=== PATIENT | female | born 2000 ===

== ENCOUNTER 2023-05-11 08:21 | Day surgery (SDC) | payer OTHER ==
[2023-05-08 10:04] LABS: HEMOGLOBIN 13.1 g/dL (12.0-15.00); MEAN CELL VOLUME 81.2 fL (80.00-100.00); MEAN CORPUSCULAR HEMOGLOBIN 27.2 pg (27.00-32.0); MEAN CORPUSCULAR HGB CONC 33.6 g/dl (32.0-36.0); PLATELET COUNT 315 K/uL (150-450); RED CELL DISTRIBUTION WIDTH 14.4 % (11.5-14.5)
[2023-05-08 10:27] LABS: INR < 0.93; PARTIAL THROMBOPLASTIN TIME 30.5 SECONDS (22.0-34.0)
[2023-05-08 10:30] LABS: PROTHROMBIN TIME 9.8 SECONDS (9.0-11.5)
[2023-05-08 10:40] LABS: ALBUMIN 3.5 gm/dL (3.4-5.0); BILIRUBIN TOTAL 0.31 mg/dL (0.3-1.2); CALCIUM 9.4 mg/dL (8.5-10.1); CREATININE SERUM 0.58 mg/dL (0.55-1.02); GFR 127.72; GLOBULINA 3.8 G/DL (2.4-3.5); POTASSIUM 4.15 mEq/L (3.5-5.1); TOTAL PROTEIN 7.3 gm/dL (6.4-8.2)
[2023-05-08 11:16] LABS: PH,URINE 6.5 (5.0-8.0); URINE APPEARANCE Clear; URINE BILIRRUBIN Negative (NEGATIVE); URINE BLOOD Trace; URINE COLOR Yellow; URINE GLUCOSE Negative (NEGATIVE); URINE LEUKOCYTE Negative; URINE NITRATE Negative; URINE PROTEIN Negative (NEGATIVE); URINE UROBILINOGEN 0.2 E.U./dl
[2023-05-08 11:20] LABS: URINE BACTERIA 307.4 uL (0.0-1933); URINE EPITHELIAL CELLS 16.9 uL (0.0-38.8); URINE RBC 7.6 uL (0.0-20.8); URINE WBC 4.4 uL (0.0-23.2)
[2023-05-11] MEDS ORDERED: CEFAZOLIN SODIUM 1,000 MG VIAL ONE (11:28)
[2023-05-11] MEDS ORDERED: DEXAMETHASONE SODIUM PHOSP/PF 10 MG/ML VIAL ONE (12:48)
[2023-05-11] MEDS ORDERED: DEXAMETHASONE SODIUM PHOSP/PF 10 MG/ML VIAL IV ONE (14:00)
[2023-05-11] MEDS ORDERED: CEFAZOLIN SODIUM 1,000 MG VIAL IV ONE (14:00)
== END 2023-05-11 15:30 | disposition home or self-care (01) ==
LOC: CIR.AMB 08:21
PROVIDERS: ATTEND Otolaryngology
DX: J35.1 Hypertrophy of tonsils (principal); Z20.822 Contact with and (suspected) exposure to COVID-19